=== PATIENT | female | born 1950 | race Caucasian/White ===

== ENCOUNTER 2017-12-30 15:39 | Inpatient (IN) | payer MEDICARE, MEDICAID ==
[~2017-12-30] VITALS: Ht 162.6 cm; Wt 52.6 kg
--- NOTE | 2017-12-30 15:50 | NUR ---
Sitter arrived and is at bedside for 1:1 observation for safety.
[2017-12-30] MEDS ORDERED: ZOLP5TAB8 PO (15:52)
[2017-12-30] MEDS ORDERED: FURO-152 PO (15:52)
[2017-12-30] MEDS ORDERED: SPIR100T5 PO (15:52)
[2017-12-30] MEDS ORDERED: GABA600T2 PO (15:52)
[2017-12-30] MEDS ORDERED: ALLO100T PO (15:52)
[2017-12-30] MEDS ORDERED: FAMO-132 PO (15:52)
[2017-12-30] MEDS ORDERED: ALBU6.7H IH (15:52)
[2017-12-30] MEDS ORDERED: ALPR0.255 PO (15:52)
[2017-12-30] MEDS ORDERED: FLUO-120 PO (15:52)
[2017-12-30] MEDS ORDERED: OXYC10TA49 PO (15:52)
[2017-12-30] MEDS ORDERED: TRAZ-182 PO (15:52)
[2017-12-30] MEDS ORDERED: D-ME118S12 PO (15:52)
--- NOTE | 2017-12-30 16:00 | NUR ---
SBAR report given to ROBERT Macdonald in [facility] via telephone.
[2017-12-30] MEDS ORDERED: LORAZEPAM 2 MG/1 ML VIAL IM ONE (16:15)
[2017-12-30] MEDS ORDERED: LORAZEPAM 2 MG/1 ML VIAL ONE (16:19)
[2017-12-30] MEDS ORDERED: ZOLPIDEM 5 MG TABLET PO PRN (17:00)
[2017-12-30] MEDS ORDERED: MAGNESIUM HYDROXIDE 30 ML LIQUID UDC PO PRN (17:00)
[2017-12-30] MEDS ORDERED: ACETAMINOPHEN 325 MG TABLET PO PRN (17:00)
[2017-12-30] MEDS ORDERED: MAG HYDROX/AL HYDROX/SIMETH 30 ML LIQUID UDC PO PRN (17:00)
--- NOTE | 2017-12-30 17:30 | NUR ---
Pt trans to [facility], NAD noted.
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
[2017-12-30] MEDS ORDERED: HYDROCODONE/APAP 5-325MG TABLET PO PRN (19:45)
[2017-12-30] MEDS ORDERED: IPRATROPIUM BROMIDE 0.5 MG/2.5 ML NEBU NEB PRN (19:45)
[2017-12-30] MEDS ORDERED: ALBUTEROL SULFATE 2.5 MG/3 ML NEBU NEB PRN (19:45)
[2017-12-30 20:00] VITALS: BP 115/58
[2017-12-31] MEDS: HYDROCODONE/APAP 10-325 MG TABLET PO PRN ×2 (00:50→20:18)
[2017-12-31] MEDS: PANTOPRAZOLE SODIUM 40 MG TABLET.DR PO SCH (07:18)
[2017-12-31 07:19] LABS: BASOPHILS % (AUTO) 0.4 % (0.0-2.0); EOSINOPHILS % (AUTO) 1.2 % (0.0-7.0); HEMATOCRIT 34.3 % (31.2-41.9); HEMOGLOBIN 11.9 g/dL (10.9-14.3); LYMPHOCYTES % (AUTO) 34.5 % (20.5-51.5); MEAN CORPUSCULAR HEMOGLOBIN 37.6 uug (24.7-32.8); MEAN CORPUSCULAR HGB CONC 35 g/dL (32.3-35.6); MEAN CORPUSCULAR VOLUME 108.8 fL (75.5-95.3); MONOCYTES # (AUTO) 0.2 K/uL (2.0-10.0); MONOCYTES % (AUTO) 7.9 % (0.0-11.0); NEUTROPHILS # (AUTO) 1.7 K/uL (1.8-8.9); PLATELET COUNT (AUTO) 78 K/uL (179-408); RED BLOOD CELL COUNT(AUTO) 3.15 MIL/uL (3.63-4.92); WHITE BLOOD COUNT (AUTO) 2.9 K/uL (3.8-11.8)
[2017-12-31 07:30] VITALS: BP 99/50
[2017-12-31 07:59] LABS: BILIRUBIN,TOTAL 0.7 mg/dL (0.2-1.0); MAGNESIUM 1.5 mg/dL (1.8-2.4); PHOSPHOROUS 2.9 mg/dL (2.5-4.9); POTASSIUM 3.6 mmol/L (3.5-5.1); TOTAL PROTEIN, SERUM 6.3 g/dL (6.4-8.2)
[2017-12-31] MEDS: THIAMINE HCL 100 MG TABLET PO SCH (08:38)
[2017-12-31] MEDS: GABAPENTIN 300 MG CAPSULE PO SCH ×3 (08:38→16:17)
[2017-12-31] MEDS: FUROSEMIDE 20 MG TABLET PO SCH ×2 (08:38→16:17)
[2017-12-31] MEDS: NICOTINE 21 MG/24HR PATCH TD SCH (08:38)
[2017-12-31] MEDS: FOLIC ACID 1 MG TABLET PO SCH (08:38)
[2017-12-31] MEDS: ALLOPURINOL 100 MG TABLET PO SCH (08:38)
[2017-12-31] MEDS: SPIRONOLACTONE 100 MG TABLET PO SCH (08:39)
[2017-12-31] MEDS: LORAZEPAM 1 MG TABLET PO PRN ×3 (08:48→22:38)
[2017-12-31] MEDS ORDERED: Medication Not On Formulary EA (Gabapentin 600 MG) PO SCH (09:00)
[2017-12-31 09:04] LABS: EOSINOPHILS % (MANUAL) 1 % (0-8); LYMPHOCYTES % (MANUAL) 34 % (20-40); MONOCYTES % (MANUAL) 9 % (2-10); NEUTROPHILS % (MANUAL) 56 % (42-75)
[2017-12-31] MEDS ORDERED: MAGNESIUM OXIDE 400 MG TABLET PO ONE (10:00)
[2017-12-31] MEDS: FLUOXETINE HCL 20 MG CAPSULE PO SCH (15:25)
[2017-12-31 15:31] VITALS: BP 94/50
--- NOTE | 2017-12-31 19:40 | NUR ---
PATIENT LYING ON BED CRYING. SHE STATED SHE IS FEELING SAD AND DEPRESSED. LISTENED TO HER, OFFERED WARM TEA PER HER REQUEST. SHE DENIES ANY SUICIDAL IDEATION. WILL CONTINUE TO MONITOR .
[2017-12-31 20:14] VITALS: BP 114/60
[2017-12-31] MEDS ORDERED: TRAZODONE 100 MG TABLET PO SCH (21:00)
[2018-01-01] MEDS: LORAZEPAM 1 MG TABLET PO PRN ×2 (02:53→14:48)
[2018-01-01] MEDS: PANTOPRAZOLE SODIUM 40 MG TABLET.DR PO SCH (06:07)
--- NOTE | 2018-01-01 06:53 | NUR ---
PATIENT AWAKE ON BED. PATIENT SLEPT 4.5 HRS DURING THE SHIFT. PRN MEDIATION ADMINISTERED DUE TO ANXIETY. NO SUCIDAL IDEATIONNOTED DURING THE SHIFT.
[2018-01-01 08:00] VITALS: BP 100/52
[2018-01-01] MEDS: GABAPENTIN 300 MG CAPSULE PO SCH ×3 (08:07→17:20)
[2018-01-01] MEDS: FUROSEMIDE 20 MG TABLET PO SCH ×2 (08:07→17:20)
[2018-01-01] MEDS: NICOTINE 21 MG/24HR PATCH TD SCH (08:07)
[2018-01-01] MEDS: FOLIC ACID 1 MG TABLET PO SCH (08:07)
[2018-01-01] MEDS: FLUOXETINE HCL 20 MG CAPSULE PO SCH (08:07)
[2018-01-01] MEDS: THIAMINE HCL 100 MG TABLET PO SCH (08:07)
[2018-01-01] MEDS: SPIRONOLACTONE 100 MG TABLET PO SCH (08:08)
[2018-01-01] MEDS: ALLOPURINOL 100 MG TABLET PO SCH (08:08)
[2018-01-01 16:00] VITALS: BP 100/50
[2018-01-01 20:00] VITALS: BP 112/55
[2018-01-01] MEDS: TRAZODONE 100 MG TABLET PO SCH (20:29)
[2018-01-01] MEDS: HYDROCODONE/APAP 10-325 MG TABLET PO PRN (20:39)
--- NOTE | 2018-01-01 22:30 | NUR ---
received to care, lying in bed, with good eye contact, pleasant upon approach. denies si, or desire to harm self. verbally contracted for safety. compliant with medications and staff direction. PRN norco was given at 2038, for generalized pain, which appeared to be effective, within an hour (pt was asleep). as of 2229, she remains asleep. no distress noted. will continue to monitor closely.
[2018-01-02] MEDS: LORAZEPAM 1 MG TABLET PO PRN ×3 (02:25→23:40)
--- NOTE | 2018-01-02 02:25 | NUR ---
PRN ativan given for anxiety.
[2018-01-02] MEDS: HYDROCODONE/APAP 10-325 MG TABLET PO PRN ×2 (04:41→20:08)
--- NOTE | 2018-01-02 04:41 | NUR ---
PRN norco, given for lower back pain.
--- NOTE | 2018-01-02 05:30 | NUR ---
appears to be asleep. no distress noted.
--- NOTE | 2018-01-02 06:30 | NUR ---
slept 6 hours total. continues to sleep. no distress noted
[2018-01-02] MEDS: PANTOPRAZOLE SODIUM 40 MG TABLET.DR PO SCH (06:48)
[2018-01-02 07:30] VITALS: BP 132/54
[2018-01-02] MEDS: THIAMINE HCL 100 MG TABLET PO SCH (08:02)
[2018-01-02] MEDS: FLUOXETINE HCL 20 MG CAPSULE PO SCH (08:02)
[2018-01-02] MEDS: FUROSEMIDE 20 MG TABLET PO SCH ×2 (08:02→16:32)
[2018-01-02] MEDS: GABAPENTIN 300 MG CAPSULE PO SCH ×3 (08:02→16:32)
[2018-01-02] MEDS: FOLIC ACID 1 MG TABLET PO SCH (08:02)
[2018-01-02] MEDS: SPIRONOLACTONE 100 MG TABLET PO SCH (08:02)
[2018-01-02] MEDS: ALLOPURINOL 100 MG TABLET PO SCH (08:04)
[2018-01-02] MEDS: NICOTINE 21 MG/24HR PATCH TD SCH (08:04)
--- NOTE | 2018-01-02 15:44 | NUR ---
Initial Discharge Instructions: Patient currently lives at home with her niece [[address], [place] [address]; [phone]]. Per pt, she would like to return there upon discharge. Spoke with patient's niece, [facility] ([phone]) who reports the patient can return home when ready for discharge. Patient reports interest in an outpatient substance abuse treatment program. SW will continue to collaborate with pt, family, and MD regarding most appropriate discharge plans for this patient. SW will form a safe and proper discharge plan.
[2018-01-02 16:32] VITALS: BP 97/52
[2018-01-02 19:30] VITALS: BP 124/61
[2018-01-02] MEDS: TRAZODONE 100 MG TABLET PO SCH (20:08)
--- NOTE | 2018-01-02 22:00 | NUR ---
received to care, lying in bed, pleasant upon approach. denies si, or desire to harm self.compliant with medications and staff direction. PRN norco was given at 2007, for lower back pain, which appeared to be effective, within an hour as of 2200, she remains awake, readin ga magazine. no distress noted. will continue to monitor closely.
--- NOTE | 2018-01-02 23:30 | NUR ---
pt was found on the floor, next to her bed, at 2130. according to the patient and her room mate, she was sitting on the edge of the bed, when she bent forward, to strip picker something on the floor, when she fell over, hitting herself on the forehead, and the right knee. vital signs were normal. no injury was noted. she initially c/o pain to both areas, but they went away, after a few minutes. Lianet MOCK and LEANDRO were both notified of incident, as was pts niece. no distress noted. will continue to monitor closely. Addendum: 01/03/18 at 0728 by HANSA KIM LVN ADDENDUM/ NO NEW ORDERS, PER DR ACEVEDO
--- NOTE | 2018-01-02 23:40 | NUR ---
remains awake. c/o anxiety. PRN ativan was given, at this time.
--- NOTE | 2018-01-03 00:10 | NUR ---
appears to be asleep. no distress noted.
--- NOTE | 2018-01-03 06:00 | NUR ---
slept 6.5 hours total. continues to sleep. no distress noted
[2018-01-03] MEDS: PANTOPRAZOLE SODIUM 40 MG TABLET.DR PO SCH (06:44)
[2018-01-03 07:30] VITALS: BP 90/50
[2018-01-03] MEDS: ALLOPURINOL 100 MG TABLET PO SCH (09:32)
[2018-01-03] MEDS: FLUOXETINE HCL 20 MG CAPSULE PO SCH (09:32)
[2018-01-03] MEDS: NICOTINE 21 MG/24HR PATCH TD SCH (09:32)
[2018-01-03] MEDS: FUROSEMIDE 20 MG TABLET PO SCH ×3 (09:33→16:23)
[2018-01-03] MEDS: FOLIC ACID 1 MG TABLET PO SCH (09:33)
[2018-01-03] MEDS: THIAMINE HCL 100 MG TABLET PO SCH (09:33)
[2018-01-03] MEDS: SPIRONOLACTONE 100 MG TABLET PO SCH (09:33)
[2018-01-03] MEDS: GABAPENTIN 300 MG CAPSULE PO SCH ×3 (09:33→16:20)
[2018-01-03] MEDS: LORAZEPAM 1 MG TABLET PO PRN ×2 (09:39→22:21)
[2018-01-03] MEDS: HYDROCODONE/APAP 10-325 MG TABLET PO PRN (09:40)
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
[2018-01-03 16:18] VITALS: BP 104/71
[2018-01-03 19:30] VITALS: BP 114/61
[2018-01-03] MEDS: TRAZODONE 100 MG TABLET PO SCH (20:22)
--- NOTE | 2018-01-03 21:05 | NUR ---
GPS: Pt.is resting comfortably at this time. Anxious earlier about her med.regimen. Re-assured prn. Contracts for safety at this time. Will continue to monitor.
[2018-01-04] MEDS: PANTOPRAZOLE SODIUM 40 MG TABLET.DR PO SCH (06:27)
[2018-01-04 07:30] VITALS: BP 104/43
[2018-01-04] MEDS: SPIRONOLACTONE 100 MG TABLET PO SCH (08:40)
[2018-01-04] MEDS: NICOTINE 21 MG/24HR PATCH TD SCH (08:40)
[2018-01-04] MEDS: THIAMINE HCL 100 MG TABLET PO SCH (08:40)
[2018-01-04] MEDS: GABAPENTIN 300 MG CAPSULE PO SCH ×3 (08:40→17:25)
[2018-01-04] MEDS: FOLIC ACID 1 MG TABLET PO SCH (08:40)
[2018-01-04] MEDS: FLUOXETINE HCL 20 MG CAPSULE PO SCH (08:40)
[2018-01-04] MEDS: ALLOPURINOL 100 MG TABLET PO SCH (08:41)
[2018-01-04] MEDS ORDERED: HYDROXYZINE PAMOATE 25 MG CAPSULE PO PRN (08:45)
[2018-01-04] MEDS: FUROSEMIDE 20 MG TABLET PO SCH ×2 (11:16→17:25)
[2018-01-04] MEDS: HYDROCODONE/APAP 10-325 MG TABLET PO PRN (11:27)
[2018-01-04 16:12] VITALS: BP 116/48
[2018-01-04 19:30] VITALS: BP 108/61
[2018-01-04] MEDS: TRAZODONE 100 MG TABLET PO SCH (20:38)
[2018-01-05] MEDS: HYDROCODONE/APAP 10-325 MG TABLET PO PRN (00:56)
[2018-01-05] MEDS: PANTOPRAZOLE SODIUM 40 MG TABLET.DR PO SCH (06:36)
[2018-01-05 07:30] VITALS: BP 117/52
[2018-01-05] MEDS: FOLIC ACID 1 MG TABLET PO SCH (08:41)
[2018-01-05] MEDS: SPIRONOLACTONE 100 MG TABLET PO SCH (08:41)
[2018-01-05] MEDS: FUROSEMIDE 20 MG TABLET PO SCH ×2 (08:41→17:00)
[2018-01-05] MEDS: FLUOXETINE HCL 20 MG CAPSULE PO SCH (08:42)
[2018-01-05] MEDS: NICOTINE 21 MG/24HR PATCH TD SCH (08:42)
[2018-01-05] MEDS: THIAMINE HCL 100 MG TABLET PO SCH (08:42)
[2018-01-05] MEDS: GABAPENTIN 300 MG CAPSULE PO SCH ×3 (08:42→17:04)
[2018-01-05] MEDS: ALLOPURINOL 100 MG TABLET PO SCH (08:57)
[2018-01-05] MEDS: LORAZEPAM 1 MG TABLET PO PRN (09:04)
[2018-01-05] MEDS ORDERED: TRAMADOL HCL 50 MG TABLET PO PRN (11:00)
[2018-01-05] MEDS ORDERED: ZOLPIDEM 5 MG TABLET PO PRN (11:15)
[2018-01-05] MEDS ORDERED: HYDROCODONE/APAP 5-325MG TABLET PO PRN (11:30)
[2018-01-05 16:14] VITALS: BP 102/55
--- NOTE | 2018-01-05 17:06 | NUR ---
EVENING LASIX HELD B/P DECREASED 102/55
[2018-01-05 20:31] VITALS: BP 122/55
[2018-01-05] MEDS: TRAZODONE 100 MG TABLET PO SCH (20:33)
[2018-01-06] MEDS: PANTOPRAZOLE SODIUM 40 MG TABLET.DR PO SCH (06:54)
[2018-01-06 07:30] VITALS: BP 115/43
[2018-01-06] MEDS: THIAMINE HCL 100 MG TABLET PO SCH (09:30)
[2018-01-06] MEDS: FLUOXETINE HCL 20 MG CAPSULE PO SCH (09:30)
[2018-01-06] MEDS: FOLIC ACID 1 MG TABLET PO SCH (09:30)
[2018-01-06] MEDS: GABAPENTIN 300 MG CAPSULE PO SCH ×3 (09:30→16:44)
[2018-01-06] MEDS: SPIRONOLACTONE 100 MG TABLET PO SCH (09:32)
[2018-01-06] MEDS: FUROSEMIDE 20 MG TABLET PO SCH ×2 (09:32→16:45)
[2018-01-06] MEDS: ALLOPURINOL 100 MG TABLET PO SCH (09:32)
[2018-01-06] MEDS: NICOTINE 21 MG/24HR PATCH TD SCH (09:32)
[2018-01-06] MEDS: LORAZEPAM 1 MG TABLET PO PRN (13:35)
--- NOTE | 2018-01-06 15:30 | NUR ---
Discharge Planning Note: lock up worker spoke with patient on 01/05/2018 regarding outpatient substance abuse treatment at [facility]. Per patient she doesn't want to go there because its "too much time". The program requires a 10 hour/week commitment consisting of group and individual therapy. Patient requested for school social worker to look for other outpatient programs. lock up worker agreed to look for another facility however, did speak with patient about how all outpatient programs will have some level of commitment expected from the patient. Patient was agreeable. lock up worker will look for another program for patient and continue to devise a safe and proper discharge.
[2018-01-06 16:32] VITALS: BP 104/54
[2018-01-06 20:00] VITALS: BP 108/58
[2018-01-06] MEDS: TRAZODONE 100 MG TABLET PO SCH (20:13)
[2018-01-06] MEDS: TEMAZEPAM 15 MG CAPSULE PO PRN (21:33)
[2018-01-07] MEDS: PANTOPRAZOLE SODIUM 40 MG TABLET.DR PO SCH (06:06)
[2018-01-07 06:26] LABS: BASOPHILS % (AUTO) 0.5 % (0.0-2.0); EOSINOPHILS % (AUTO) 0.9 % (0.0-7.0); HEMATOCRIT 31.6 % (31.2-41.9); HEMOGLOBIN 11.1 g/dL (10.9-14.3); LYMPHOCYTES % (AUTO) 31.6 % (20.5-51.5); MEAN CORPUSCULAR HEMOGLOBIN 36.9 uug (24.7-32.8); MEAN CORPUSCULAR HGB CONC 35 g/dL (32.3-35.6); MEAN CORPUSCULAR VOLUME 105.1 fL (75.5-95.3); MONOCYTES # (AUTO) 0.3 K/uL (2.0-10.0); MONOCYTES % (AUTO) 10.1 % (0.0-11.0); NEUTROPHILS # (AUTO) 1.7 K/uL (1.8-8.9); NEUTROPHILS % (AUTO) 56.9 % (38.5-71.5); PLATELET COUNT (AUTO) 111 K/uL (179-408); RED BLOOD CELL COUNT(AUTO) 3.01 MIL/uL (3.63-4.92); WHITE BLOOD COUNT (AUTO) 3.1 K/uL (3.8-11.8)
--- NOTE | 2018-01-07 06:29 | NUR ---
PT SLEPT THROUGHOUT THE SHIFT. PT SLEPT SEVEN HOURS AND 30 MINUTES. PT SHOWS NO SIGNS OF DISTRESS. PT COOPERATIVE WITH CARE.PT SHOWS NO SIGNS OF HARMING HERSELF. PLEASANT WHEN APPROACHED AND INTERACT WHEN APPROACHED. SAFETY AND COMFORT PROVIDED. ALL NEEDS ARE MET.WILL ENDORSE TO DAYSMNFT NURSE FOR CONTINUITY OF CARE.
[2018-01-07 06:48] LABS: CREATININE 1.2 mg/dL (0.6-1.3); POTASSIUM 3.9 mmol/L (3.5-5.1)
[2018-01-07 07:30] VITALS: BP 116/61
--- NOTE | 2018-01-07 07:30 | NUR ---
Recieved pt sitted up in bed and eating breakfast well.. Awake, alert and orientedx3. No apparent distress noted at this time.
[2018-01-07] MEDS: GABAPENTIN 300 MG CAPSULE PO SCH ×3 (08:28→16:31)
[2018-01-07] MEDS: FLUOXETINE HCL 20 MG CAPSULE PO SCH (08:29)
[2018-01-07] MEDS: NICOTINE 21 MG/24HR PATCH TD SCH (08:30)
[2018-01-07] MEDS: FUROSEMIDE 20 MG TABLET PO SCH (08:30)
[2018-01-07] MEDS: SPIRONOLACTONE 100 MG TABLET PO SCH (08:30)
[2018-01-07] MEDS: FOLIC ACID 1 MG TABLET PO SCH (08:30)
[2018-01-07] MEDS: THIAMINE HCL 100 MG TABLET PO SCH (08:30)
--- NOTE | 2018-01-07 09:00 | NUR ---
Seen and examined by Benjamin CAR EXAMINER with new orders. Pt medicated with Ditropan for bladder control as requested.
[2018-01-07] MEDS: ALLOPURINOL 100 MG TABLET PO SCH (09:37)
[2018-01-07] MEDS: HYDROCODONE/APAP 5-325MG TABLET PO PRN ×2 (09:38→18:51)
[2018-01-07] MEDS: OXYBUTYNIN CHLORIDE 5 MG TABLET PO SCH ×2 (11:24→20:33)
--- NOTE | 2018-01-07 13:00 | NUR ---
Pt stayed in the recreation room and participating in the activity.
[2018-01-07 17:30] VITALS: BP 106/49
[2018-01-07 20:02] VITALS: BP 127/42
[2018-01-07] MEDS: TRAZODONE 100 MG TABLET PO SCH (20:32)
[2018-01-07] MEDS: LORAZEPAM 1 MG TABLET PO PRN (22:25)
[2018-01-07] MEDS: TEMAZEPAM 15 MG CAPSULE PO PRN (23:51)
[2018-01-08] MEDS: PANTOPRAZOLE SODIUM 40 MG TABLET.DR PO SCH (06:24)
[2018-01-08 07:49] VITALS: BP 103/48
[2018-01-08] MEDS: GABAPENTIN 300 MG CAPSULE PO SCH ×3 (09:04→16:25)
[2018-01-08] MEDS: FLUOXETINE HCL 20 MG CAPSULE PO SCH (09:04)
[2018-01-08] MEDS: SPIRONOLACTONE 100 MG TABLET PO SCH (09:04)
[2018-01-08] MEDS: FOLIC ACID 1 MG TABLET PO SCH (09:04)
[2018-01-08] MEDS: ALLOPURINOL 100 MG TABLET PO SCH (09:04)
[2018-01-08] MEDS: OXYBUTYNIN CHLORIDE 5 MG TABLET PO SCH ×2 (09:04→20:37)
[2018-01-08] MEDS: THIAMINE HCL 100 MG TABLET PO SCH (09:04)
[2018-01-08] MEDS: HYDROCODONE/APAP 5-325MG TABLET PO PRN ×2 (09:05→16:25)
[2018-01-08] MEDS: NICOTINE 21 MG/24HR PATCH TD SCH (09:05)
[2018-01-08] MEDS: LIDOCAINE 5% PATCH TD SCH (09:05)
[2018-01-08] MEDS ORDERED: PNEUMOCOCCAL 23-VAL P-SAC VAC 0.5 ML VIAL IM ONE (12:00)
[2018-01-08] MEDS: LORAZEPAM 1 MG TABLET PO PRN (12:50)
[2018-01-08 15:16] VITALS: BP 114/57
[2018-01-08 20:00] VITALS: BP 99/51
[2018-01-08] MEDS: TRAZODONE 100 MG TABLET PO SCH (20:37)
[2018-01-08] MEDS: TEMAZEPAM 15 MG CAPSULE PO PRN (23:34)
[2018-01-09] MEDS: HYDROCODONE/APAP 5-325MG TABLET PO PRN ×2 (03:18→12:13)
[2018-01-09] MEDS: PANTOPRAZOLE SODIUM 40 MG TABLET.DR PO SCH (06:52)
[2018-01-09 07:30] VITALS: BP 125/50
[2018-01-09] MEDS: LIDOCAINE 5% PATCH TD SCH (08:37)
[2018-01-09] MEDS: NICOTINE 21 MG/24HR PATCH TD SCH (08:37)
[2018-01-09] MEDS: FOLIC ACID 1 MG TABLET PO SCH (08:37)
[2018-01-09] MEDS: OXYBUTYNIN CHLORIDE 5 MG TABLET PO SCH ×2 (08:38→20:16)
[2018-01-09] MEDS: ALLOPURINOL 100 MG TABLET PO SCH (08:38)
[2018-01-09] MEDS: SPIRONOLACTONE 100 MG TABLET PO SCH (08:38)
[2018-01-09] MEDS: THIAMINE HCL 100 MG TABLET PO SCH (08:38)
[2018-01-09] MEDS: GABAPENTIN 300 MG CAPSULE PO SCH ×3 (08:38→17:17)
[2018-01-09] MEDS: FLUOXETINE HCL 20 MG CAPSULE PO SCH (08:38)
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
--- NOTE | 2018-01-09 12:47 | NUR ---
Social Work Discharge Update: table worker packager received a voicemail from [facility] stating that patient left her a threatening voicemail stating that if [facility] didnt give medication back, that patient would take action. Because of the threatening nature of voicemail, Ashley no longer wants patient to return to her home where pt. was living. table worker packager called [facility] back and left a voicemail today at 12:05pm. Social Work will work on discharge plan and discuss with Dr Griffith.
--- NOTE | 2018-01-09 14:01 | NUR ---
Discharge planning: ornamental ironworker helper called and spoke with Ashley [[phone]], patients niece, who states that patient can come back, but that she will not allow patient to drink or have access to "all of the pills". ornamental ironworker helper suggested home health for med management. [facility] was in agreement with plan.
[2018-01-09] MEDS: LORAZEPAM 1 MG TABLET PO PRN (15:02)
[2018-01-09 16:00] VITALS: BP 126/60
[2018-01-09 20:00] VITALS: BP 120/48
[2018-01-09] MEDS: TRAZODONE 100 MG TABLET PO SCH (20:16)
[2018-01-10] MEDS: LORAZEPAM 1 MG TABLET PO PRN (04:38)
[2018-01-10] MEDS: HYDROCODONE/APAP 5-325MG TABLET PO PRN ×2 (04:40→11:19)
[2018-01-10] MEDS: PANTOPRAZOLE SODIUM 40 MG TABLET.DR PO SCH (06:32)
[2018-01-10 07:30] VITALS: BP 106/49
[2018-01-10] MEDS: ALLOPURINOL 100 MG TABLET PO SCH (10:07)
[2018-01-10] MEDS: OXYBUTYNIN CHLORIDE 5 MG TABLET PO SCH (10:07)
[2018-01-10] MEDS: NICOTINE 21 MG/24HR PATCH TD SCH (10:07)
[2018-01-10] MEDS: FLUOXETINE HCL 20 MG CAPSULE PO SCH (10:07)
[2018-01-10] MEDS: LIDOCAINE 5% PATCH TD SCH (10:07)
[2018-01-10] MEDS: THIAMINE HCL 100 MG TABLET PO SCH (10:07)
[2018-01-10] MEDS: SPIRONOLACTONE 100 MG TABLET PO SCH (10:08)
[2018-01-10] MEDS: FOLIC ACID 1 MG TABLET PO SCH (10:08)
[2018-01-10] MEDS: GABAPENTIN 300 MG CAPSULE PO SCH ×3 (10:08→17:00)
--- NOTE | 2018-01-10 10:19 | NUR ---
Discharge Note: Patient will be discharged back to home [[address] [place] [address]; ph#: [phone]] with her niece, Ashley [Phone: [phone]] who will provide transportation for patient at 3:00pm. Patient has been receiving home health through [facility] [[phone]] including physical therapy, social work services, and medication management. supply service worker spoke with Dandy at the facility confirming that patient will continue to receive services and is aware of patient discharge today. supply service worker called and spoke with Ashley informing her of patient discharge and she is agreeable with discharge plan. Patient is alert and oriented x3 and denies any SI/HI. Patient was briefed on discharge and aware and agreeable to having [facility] pick her up at 3:00pm. Patient will follow-up with Dr. Valentine [ ], primary care physician, today at 4:00pm. Patient currently does not have a psychiatrist. supply service worker provided patient with a list of Medicare accepting psychiatrists in the [facility]. Patient also has a painter helper, Dr. Vernon [[phone]], whom she will follow-up with on an outpatient basis. Patient was given outpatient mental health resources [facility] , [facility] , and the National Suicide Prevention Lifeline . Patient has also been provided with outpatient substance abuse resources including [facility] [[phone]], [facility] [[phone]], [facility] [[phone]], and [facility] [ ]. Patient was provided with a brief substance abuse intervention.
[2018-01-10 16:30] VITALS: BP 124/59
--- NOTE | 2018-01-10 17:15 | NUR ---
GPS: Nursing Notes: Discharge Notes: Patient is awake and responding to her name, cooperative with nursing care, compliant with her medications, following staff directions, denies any SI/HI, denies any AH/VH, denies any pain or discomfort, denies any SOB, discharge to home with her chato Ramirez at [address] [place] [address] , transported home via private vehicle by patient's niece - Ashley, took all her belongings with her, prescriptions and instructions given to her niece - [facility]. Patient has been receiving home health through [facility] [[phone]] including physical therapy, social work services, and medication management. farmworker fruit spoke with Dandy at the facility confirming that patient will continue to receive services and is aware of patient discharge today. farmworker fruit called and spoke with Ashley informing her of patient discharge and she is agreeable with discharge plan. Patient was briefed on discharge and aware and agreeable to having [facility] pick her up at 3:00pm. Patient will follow-up with Dr. Valentine [ ], primary care physician, today at 4:00pm. Patient currently does not have a psychiatrist. farmworker fruit provided patient with a list of Medicare accepting psychiatrists in the [place] area. Patient also has a painter barrel, Dr. Vernon [[phone]], whom she will follow-up with on an outpatient basis. Patient was given outpatient mental health resources [facility] Crisis Line , [facility] , and the National Suicide Prevention Lifeline . Patient has also been provided with outpatient substance abuse resources including [facility] [[phone]], [facility] [[phone]], [facility] [[phone]], and [facility] [ ]. Patient was provided with a brief substance abuse intervention.
== END 2018-01-10 17:15 | disposition home or self-care (01) | DRG 885 ==
LOC: ER 15:39 → GPS 16:30
PROVIDERS: ADMIT Psychiatry & Neurology Psychiatry; ATTEND Hospitalist
DX: F33.2 Major depressive disorder, recurrent severe without psychotic features (principal); N17.0 Acute kidney failure with tubular necrosis; E44.0 Moderate protein-calorie malnutrition; Z68.1 Body mass index [BMI] 19.9 or less, adult; F23 Brief psychotic disorder; F10.239 Alcohol dependence with withdrawal, unspecified; K70.30 Alcoholic cirrhosis of liver without ascites; F12.90 Cannabis use, unspecified, uncomplicated; D53.9 Nutritional anemia, unspecified; M79.7 Fibromyalgia; N32.81 Overactive bladder; E83.42 Hypomagnesemia; D72.819 Decreased white blood cell count, unspecified; F43.10 Post-traumatic stress disorder, unspecified; G89.29 Other chronic pain; F41.9 Anxiety disorder, unspecified; E88.09 Other disorders of plasma-protein metabolism, not elsewhere classified; Z91.5 Personal history of self-harm; Y90.9 Presence of alcohol in blood, level not specified; Z87.891 Personal history of nicotine dependence
CPT/HCPCS: 36415; 71045; 82747; 83735; 84100; 85014; 85025; 85610; 85730; 90732; 93005; A4663; J2060; J8499